=== PATIENT | female | born 1985 | race Caucasian/White ===

== ENCOUNTER 2017-06-03 21:33 | Emergency (ER) | payer BC ==
[~2017-06-03] VITALS: Ht 162.6 cm; Wt 75.4 kg
[~2017-06-03 21:33] MED LIST: AUGMENTIN875 MG PO; LUVOX50 MG PO; PEPCID40 MG PO; PRENATAL TABLE1 EAC3 PO; PROVENTIL,2.5 MG/3 M IH
[2017-06-03 22:44] LABS: HEMATOCRIT 38.1 % (36.0-46.0); MCHC 32.8 G/DL (30.0-36.0); MCV 82.3 FL (83-99); MEAN PLAT.VOLUME 8.3 uM^3 (9.5-12.4); PLATELET COUNT 281 K/uL (156-360); RBC DIS.WIDTH-CV 13.4 % (11.8-14.6); RBC DIS.WIDTH-SD 40.3 % (39-53); RED BLOOD COUNT 4.63 M/uL (3.80-5.20); WHITE BLOOD COUNT 6.7 K/uL (4.1-10.2)
[2017-06-03 22:51] LABS: CHLORIDE 107 mEq/L (99-109); POTASSIUM 3.6 mEq/L (3.7-5.4); SODIUM 140 mEq/L (136-147)
[2017-06-03 22:54] LABS: GLUCOSE 81 mg/dL (70-99)
[2017-06-03 22:55] LABS: ANION GAP 13 MEQ/L (2-14); TOTAL BILIRUBIN 0.3 mg/dL (0.0-1.0)
[2017-06-03 22:57] LABS: ALKALINE PHOSPHATASE 54 IU/L (3-129); GFR ESTIMATE (CALCULATED) > 59 mL/min/
[2017-06-03 22:58] LABS: UREA NITROGEN (BUN) 10 mg/dL (9-23)
[2017-06-03 23:06] LABS: QUANTITATIVE HCG < 4.0 MIU/ML; TROP-I INTERPRETATION NEGATIVE; TROPONIN-I < 0.01 ng/mL (0.0-0.30)
[2017-06-04 00:39] VITALS: BP 126/84
== END 2017-06-04 00:41 | disposition home or self-care (01) ==
LOC: EME 21:33
PROVIDERS: Emergency Medicine
DX: R55 Syncope and collapse (principal); E78.5 Hyperlipidemia, unspecified; F17.200 Nicotine dependence, unspecified, uncomplicated
CPT/HCPCS: 70450; 71020; 80053; 81003; 84484; 84702; 85027; 93005; 99281; 99284; J7030